=== PATIENT | female | born 1985 | race African-American/Black ===

== ENCOUNTER 2023-06-01 11:07 | Emergency (ER) | payer MEDICAID, OTHER ==
[~2023-06-01] VITALS: Ht 167.6 cm; Wt 54.0 kg
[2023-06-01 11:12] VITALS: O2SAT 98
[2023-06-01 11:59] LABS: CHLORIDE 84 mEq/L (98-107); INDEX HEMOLYSI 1 (1-3); INDEX ICTERIC 1 (1-4); INDEX LIPEMIC 1 (1-3); SODIUM 125 mEq/L (136-145)
[2023-06-01 12:00] LABS: HEMATOCRIT. 32.4 % (36.0-48.0); HEMOGLOBIN. 11.5 g/dL (12.0-16.0); MEAN CORPUSCULAR HEMOGLOBIN 31.6 pg (28.0-32.0); MEAN CORPUSCULAR HGB CONC 35.4 g/dL (31.0-37.0); MEAN CORPUSCULAR VOLUME 89.2 fL (81.0-99.0); MEAN PLATELET VOLUME 8.6 fl (7.4-10.4); PLATELET 470 x1000/uL (130-400); RED BLOOD CELL COUNT 3.63 mill/uL (4.2-5.4); RED CELL DISTRIBUTION WIDTH 16.3 % (11.6-14.6); WHITE BLOOD COUNT 10.9 x1000/uL (4.5-11.0)
[2023-06-01 12:06] LABS: ALANINE AMINOTRANSFERASE 25 IU/L (13-61); ALBUMIN 3.2 g/dL (3.4-5.0); ASPARTATE AMINOTRANSFERASE 56 IU/L (15-37); BILIRUBIN TOTAL 1.3 mg/dL (0.1-1.0); CALCIUM 9.3 mg/dL (8.5-10.1); CARBON DIOXIDE 33 mEq/L (21-32); CREATININE 0.6 mg/dL (0.6-1.3); GLUCOSE 104 mg/dL (70-105); PROTEIN TOTAL 8.6 g/dL (6.0-8.3); UREA NITROGEN BLOOD 6 mg/dL (7-21)
[2023-06-01 12:28] LABS: HCG SCREEN NEGATIVE
[2023-06-01] MEDS ORDERED: AMOXICILLIN 500 MG CAPSULE PO ONE (12:30)
[2023-06-01] MEDS ORDERED: IBUPROFEN 400MG TABLET PO ONE (12:30)
[2023-06-01] MEDS ORDERED: AZITHROMYCIN 500 MG TABLET PO ONE (12:30)
[2023-06-01] MEDS ORDERED: ACETAMINOPHEN 325MG TABLET PO ONE (12:30)
[2023-06-01 12:34] LABS: POTASSIUM 2.6 mEq/L (3.5-5.1)
[2023-06-01 12:37] LABS: DIFFERENTIAL COMMENT 1
[2023-06-01] MEDS ORDERED: MAGNESIUM OXIDE 400MG TABLET PO SCH (13:00)
[2023-06-01] MEDS ORDERED: KCL 20MEQ/100ML PREMIX 100 ML IV ONE (13:00)
[2023-06-01] MEDS ORDERED: POTASSIUM CHLORIDE 20MEQ TABLET SR PO ONE (13:00)
[2023-06-01] MEDS ORDERED: AZITHROMYCIN 500 MG in DEXT 5% WATER 250 ML IV STA (13:02)
[2023-06-01 13:15] LABS: CLARITY URINE CLOUDY (CLEAR); COLOR URINE ORANGE (YELLOW); GLUCOSE URINE NEGATIVE (NEGATIVE); KETONES URINE 3+ (NEGATIVE); LEUKOCYTE ESTERASE URINE 1+ (NEGATIVE); NITRITE URINE POSITIVE (NEGATIVE); OCCULT BLOOD URINE 2+ (NEGATIVE); PROTEIN URINE 2+ (NEGATIVE); SPECIFIC GRAVITY URINE 1.016 (1.005-1.030)
[2023-06-01] MEDS ORDERED: CEFTRIAXONE 1GM PREMIX 50 ML IV ONE (13:15)
[2023-06-01] MEDS ORDERED: SODIUM CHLORIDE 0.9% 1,000 ML IV ONE ×2 (13:15→15:15)
[2023-06-01] MEDS ORDERED: AZITHROMYCIN 500MG/250ML 250 ML IV NR (13:15)
[2023-06-01 13:25] LABS: PLATELET ESTIMATE INCREASED
[2023-06-01 13:37] LABS: BACTERIA URINE 1+; SQUAMOUS EPITHELIAL CELL URINE 2+ /lpf (RARE/1+); YEAST URINE NONE SEEN
[2023-06-01 15:04] LABS: LACTIC ACID 2.4 mmol/L (0.4-2.0)
[2023-06-01] MEDS ORDERED: POTASSIUM CHLORIDE 20MEQ TABLET SR PO NR ×2 (16:30)
[2023-06-01] MEDS ORDERED: CEFTRIAXONE 1GM PREMIX 50 ML IV NR (16:30)
[2023-06-01] MEDS ORDERED: KCL 20MEQ/100ML PREMIX 100 ML IV NR (17:15)
[2023-06-01 21:24] VITALS: BP 109/68; PULSE 87; RESP 18; TEMP 98.5
== END 2023-06-01 21:45 | disposition short-term general hospital (02) ==
LOC: ER 11:51
DX: A41.9 Sepsis, unspecified organism (principal); J18.9 Pneumonia, unspecified organism; E87.6 Hypokalemia; E87.1 Hypo-osmolality and hyponatremia; Z20.822 Contact with and (suspected) exposure to COVID-19
CPT/HCPCS: 80053; 81003; 81025; 84703; 83605; 85025; 87040; 36415; 71045; 96368; 96365; 96366; 99291; 87426; J0456; J0696; J3480; J7030; C9803; Z7610 ×3; J7060